=== PATIENT | male | born 1945 | race Caucasian/White ===

== ENCOUNTER 2023-02-10 08:40 | Emergency (ER) | payer OTHER, MEDICARE ==
[2023-02-10 09:17] LABS: BASOPHILS ABSOLUTE AUTO 0.03 10^3/uL (0.00-0.50); BASOPHILS PERCENT AUTO 0.2 % (0-1); EOSINOPHILS ABSOLUTE AUTO 0.23 10^3/uL (0.00-1.50); EOSINOPHILS PERCENT AUTO 1.3 % (0-6); HEMATOCRIT 46.2 % (42.0-52.0); HEMOGLOBIN 14.3 g/dL (14.0-18.0); IMMATURE GRAN ABSOLUTE AUTO 0.12 10^3/uL (0.00-0.49); IMMATURE GRAN PERCENT AUTO 0.7 % (0.0-4.9); LYMPHOCYTES ABSOLUTE AUTO 3.08 10^3/uL (0.60-5.00); LYMPHOCYTES PERCENT AUTO 17.2 % (24-44); MEAN CORPUSCULAR HEMOGLOBIN 28.7 pg (27.0-32.0); MEAN CORPUSCULAR VOLUME 92.8 fL (83.0-97.0); MONOCYTES ABSOLUTE AUTO 1.41 10^3/uL (0.00-1.50); MONOCYTES PERCENT AUTO 7.9 % (0-10); NEUTROPHILS ABSOLUTE AUTO 13.02 x10^3/uL (1.80-8.00); NEUTROPHILS PERCENT AUTO 72.7 % (41-71); PLATELET COUNT,PLT 265 10^3/uL (150-400); RED BLOOD CELL COUNT 4.98 x10^6/uL (4.50-6.00); WHITE BLOOD CELL COUNT,WBC 17.9 10^3/uL (4.0-11.0)
[2023-02-10 09:35] LABS: ALBUMIN 3.4 g/dL (3.4-5.0); BILIRUBIN TOTAL 0.3 mg/dL (0.0-1.0); BLOOD UREA NITROGEN,BUN 15 mg/dL (7-18); CHLORIDE,CL 105 mEq/L (98-106); CREATININE 1.2 mg/dL (0.7-1.3); EST CRCL DRUG DOSING (CG) 49.73 mL/min; MAGNESIUM 2.1 mg/dL (1.8-2.4); POTASSIUM,K 3.1 mEq/L (3.5-5.0); PROTEIN TOTAL,TP 7.4 g/dL (6.4-8.2); SODIUM,NA 145 mEq/L (136-145)
[2023-02-10 09:42] LABS: ALANINE AMINOTRANSFERASE,ALT 58 U/L (12-78); ALKALINE PHOSPHATASE 68 U/L (46-116); ASPARTATE AMNIOTRANSFERASE,AST 54 U/L (15-37); CALCIUM 8.9 mg/dL (8.4-10.1); CARBON DIOXIDE,CO2 27 mmol/L (21-32); GLUCOSE RANDOM 89 mg/dL (75-99)
[2023-02-10 09:45] LABS: ESTIMATED GFR 63 mL/min (>=60)
[2023-02-10 09:46] LABS: ETHANOL BLOOD MEDICAL < 3 mg/dL (0-3)
[2023-02-10] MEDS: Ondansetron 4 MG/2 ML SDV IVPUSH STA (10:03)
[2023-02-10] MEDS: Morphine 4 MG/ML VIAL IVPUSH ONE (10:05)
[2023-02-10] MEDS: Diphtheria,Pertussis(Acell),Tetanus Vaccine 0.5 ML Syringe IM ONE (10:05)
[2023-02-10] MEDS: Lidocaine 1% 5 ML VIAL INJECT ONE (10:10)
[2023-02-10] MEDS: Iopamidol 755 Mg/ML 100 ML Bottle IVPUSH ONE (10:16)
[2023-02-10 10:18] LABS: APPEARANCE,URINE CLEAR (CLEAR); BILIRUBIN,URINE NEGATIVE (NEGATIVE); COLOR,URINE YELLOW (YELLOW); GLUCOSE,URINE 500 mg/dL (NEGATIVE); KETONES,URINE NEGATIVE (NEGATIVE); LEUKOCYTE ESTERASE,URINE NEGATIVE (NEGATIVE); NITRITE,URINE NEGATIVE (NEGATIVE); OCCULT BLOOD,URINE TRACE-INTACT (NEGATIVE); PH,URINE 5.5 (4.5-8.0); PROTEIN,URINE 100 mg/dL (NEGATIVE); UROBILINOGEN,URINE 0.2 EU/dL (0.2-1.0)
[2023-02-10 10:20] LABS: BACTERIA,URINE NOT SEEN /HPF (NOT SEEN); RBC,URINE NOT SEEN /HPF (0-5); WBC,URINE NOT SEEN /HPF (0-5)
[2023-02-10 10:21] LABS: EPITHELIAL CELLS,URINE FEW /HPF (NOT SEEN); MUCUS,URINE FEW /HPF (NOT SEEN)
[2023-02-10] MEDS: Lactated Ringers 1,000 ML IV STA ×2 (10:36→16:48)
[2023-02-10 10:37] LABS: AMPHETAMINES,URINE NEGATIVE (NEGATIVE); BARBITURATES,URINE NEGATIVE (NEGATIVE); BENZODIAZEPINE,URINE NEGATIVE (NEGATIVE); MDMA (ECSTASY), URINE NEGATIVE (NEGATIVE); METHADONE,URINE NEGATIVE (NEGATIVE); METHAMPHETAMINES,URINE NEGATIVE (NEGATIVE); OPIATES,URINE NEGATIVE (NEGATIVE); OXYCODONE,URINE NEGATIVE (NEGATIVE); PHENCYCLIDINE,URINE NEGATIVE (NEGATIVE); TCA,URINE NEGATIVE (NEGATIVE)
[2023-02-10] MEDS: 50% Dextrose in Water 50 ML Syringe IVPUSH ONE (10:38)
[2023-02-10] MEDS: D5 1/2 NS w/ 20 mEq/L KCl 1,000 ML IV SCH (10:42)
[2023-02-10] MEDS: Lidocaine 1% 5 ML VIAL ONE (16:51)
== END 2023-02-10 11:05 ==
LOC: CC.ED 08:40
DX: S72.141A Displaced intertrochanteric fracture of right femur, initial encounter for closed fracture (principal); S32.029A Unspecified fracture of second lumbar vertebra, initial encounter for closed fracture; S32.039A Unspecified fracture of third lumbar vertebra, initial encounter for closed fracture; S01.81XA Laceration without foreign body of other part of head, initial encounter; Z79.899 Other long term (current) drug therapy; Z79.4 Long term (current) use of insulin; Z79.84 Long term (current) use of oral hypoglycemic drugs; V59.50XA Passenger in pick-up truck or van injured in collision with unspecified motor vehicles in traffic accident, initial encounter; Y92.410 Unspecified street and highway as the place of occurrence of the external cause
CPT/HCPCS: 12013; 36415; 70450; 71045; 72125; 72170; 74177; 80053; 80305-QW; 80307; 81001; 82947; 83605; 83735; 84484; 85025; 86850; 86900; 86901; 90471; 90715; 93005; 93010; 96374; 96375; 99284; 99285-25; J2270; J2405; J3480; J3490; J7120; Q9967

== ENCOUNTER 2023-02-21 12:38 | Inpatient (IN) | payer MEDICARE ==
[2023-02-21] MEDS ORDERED: oxyCODONE 5 MG Tab PO PRN ×2 (14:18→14:31)
[2023-02-21] MEDS ORDERED: Glucagon,Human Recombinant 1 MG Vial IM PRN ×2 (14:28→14:41)
[2023-02-21] MEDS ORDERED: 50% Dextrose in Water 50 ML Syringe IVPUSH PRN ×2 (14:28→14:41)
[2023-02-21] MEDS ORDERED: Acetaminophen 325 MG Tab PO PRN (14:47)
[2023-02-21] MEDS ORDERED: Acetaminophen 650 MG Supp RECTAL PRN (14:47)
[2023-02-21] MEDS ORDERED: Magnesium Hydroxide 400 MG/5 ML Susp 30 ML Cup PO PRN (14:48)
[2023-02-21] MEDS ORDERED: Bisacodyl 10 MG Supp RECTAL PRN (14:49)
[2023-02-21] MEDS ORDERED: Loperamide 2 MG Cap PO PRN (14:51)
[2023-02-21] MEDS ORDERED: guaiFENesin 200 MG Tab PO PRN (14:51)
[2023-02-21] MEDS ORDERED: Polyvinyl Alcohol 1.4% Ophth Soln 15 ML Bottle EYEBOTH PRN (14:52)
[2023-02-21] MEDS ORDERED: Lidocaine 5% 700 MG Patch TRDERM SCH (15:00)
[2023-02-21] MEDS: Acetaminophen 325 MG Tab PO SCH ×2 (17:46→19:57)
[2023-02-21] MEDS: Insulin Lispro 100 Units/ML 3 ML Vial SUBCUT SCH (17:46)
[2023-02-21] MEDS: Calcium Carbonate/Vitamin D3 1250 MG-5 MCG Tab PO SCH (17:48)
[2023-02-21] MEDS: Bacitracin Oint 28.35 GM Tube TOP SCH (19:55)
[2023-02-21] MEDS: Sennosides/Docusate Sodium 50-8.6 MG Tab PO SCH (19:56)
[2023-02-21] MEDS: Gabapentin 100 MG Cap PO SCH (19:56)
[2023-02-21] MEDS ORDERED: Polyethylene Glycol 3350 Powder 17 GM Packet PO SCH (20:00)
[2023-02-21] MEDS: Insulin Glarg,Human.Rec.Analog 100 Unit/ML SUBCUT SCH (20:13)
[2023-02-21] MEDS: Nystatin Topical Powder 15 GM Bottle TOP SCH (20:32)
[2023-02-22] MEDS ORDERED: [UNRECOGNIZED DRUG - REMARK] TRDERM SCH (03:00)
[2023-02-22] MEDS: tiZANidine 4 MG Tab PO SCH (07:38)
[2023-02-22] MEDS: Calcium Carbonate/Vitamin D3 1250 MG-5 MCG Tab PO SCH ×2 (07:39→17:04)
[2023-02-22] MEDS: Gabapentin 100 MG Cap PO SCH ×3 (07:39→19:39)
[2023-02-22] MEDS: Sennosides/Docusate Sodium 50-8.6 MG Tab PO SCH ×2 (07:39→19:39)
[2023-02-22] MEDS: Acetaminophen 325 MG Tab PO SCH ×4 (07:39→19:40)
[2023-02-22] MEDS: Cholecalciferol (Vitamin D3) 25 MCG Tab PO SCH (07:39)
[2023-02-22] MEDS: Lidocaine 5% 700 MG Patch TRDERM SCH (07:39)
[2023-02-22] MEDS: Insulin Lispro 100 Units/ML 3 ML Vial SUBCUT SCH ×3 (07:47→17:38)
[2023-02-22] MEDS: Bacitracin Oint 28.35 GM Tube TOP SCH ×2 (07:49→19:38)
[2023-02-22] MEDS: Nystatin Topical Powder 15 GM Bottle TOP SCH ×2 (08:12→19:39)
[2023-02-22] MEDS: Enoxaparin 40 MG/0.4 ML Syringe SUBCUT SCH (11:55)
[2023-02-22] MEDS: Insulin Glarg,Human.Rec.Analog 100 Unit/ML SUBCUT SCH (20:03)
[2023-02-23] MEDS: Calcium Carbonate/Vitamin D3 1250 MG-5 MCG Tab PO SCH ×2 (08:03→17:10)
[2023-02-23] MEDS: Nystatin Topical Powder 15 GM Bottle TOP SCH ×2 (08:03→20:24)
[2023-02-23] MEDS: Insulin Lispro 100 Units/ML 3 ML Vial SUBCUT SCH ×3 (08:04→17:21)
[2023-02-23] MEDS: Gabapentin 100 MG Cap PO SCH ×3 (08:04→19:33)
[2023-02-23] MEDS: Bacitracin Oint 28.35 GM Tube TOP SCH ×2 (08:05→20:23)
[2023-02-23] MEDS: Sennosides/Docusate Sodium 50-8.6 MG Tab PO SCH ×2 (08:05→20:24)
[2023-02-23] MEDS: Lidocaine 5% 700 MG Patch TRDERM SCH (08:05)
[2023-02-23] MEDS: tiZANidine 4 MG Tab PO SCH (08:06)
[2023-02-23] MEDS: Cholecalciferol (Vitamin D3) 25 MCG Tab PO SCH (08:06)
[2023-02-23] MEDS: Acetaminophen 325 MG Tab PO SCH ×4 (08:06→19:32)
[2023-02-23] MEDS: Enoxaparin 40 MG/0.4 ML Syringe SUBCUT SCH (11:57)
[2023-02-23] MEDS: Insulin Glarg,Human.Rec.Analog 100 Unit/ML SUBCUT SCH (20:16)
[2023-02-24] MEDS: tiZANidine 4 MG Tab PO SCH (08:09)
[2023-02-24] MEDS: Calcium Carbonate/Vitamin D3 1250 MG-5 MCG Tab PO SCH ×2 (08:10→16:41)
[2023-02-24] MEDS: Acetaminophen 325 MG Tab PO SCH ×4 (08:10→19:17)
[2023-02-24] MEDS: Gabapentin 100 MG Cap PO SCH ×3 (08:10→19:17)
[2023-02-24] MEDS: Sennosides/Docusate Sodium 50-8.6 MG Tab PO SCH ×2 (08:11→19:17)
[2023-02-24] MEDS: Cholecalciferol (Vitamin D3) 25 MCG Tab PO SCH (08:11)
[2023-02-24] MEDS: Insulin Lispro 100 Units/ML 3 ML Vial SUBCUT SCH ×3 (08:11→17:38)
[2023-02-24] MEDS: Lidocaine 5% 700 MG Patch TRDERM SCH (08:12)
[2023-02-24] MEDS: Nystatin Topical Powder 15 GM Bottle TOP SCH ×2 (08:13→19:17)
[2023-02-24] MEDS: Bacitracin Oint 28.35 GM Tube TOP SCH ×2 (08:13→19:17)
[2023-02-24] MEDS: Enoxaparin 40 MG/0.4 ML Syringe SUBCUT SCH (11:45)
[2023-02-24] MEDS: Insulin Glarg,Human.Rec.Analog 100 Unit/ML SUBCUT SCH (19:37)
[2023-02-25] MEDS: tiZANidine 4 MG Tab PO SCH (07:46)
[2023-02-25] MEDS: Cholecalciferol (Vitamin D3) 25 MCG Tab PO SCH (07:47)
[2023-02-25] MEDS: Gabapentin 100 MG Cap PO SCH ×3 (07:49→19:33)
[2023-02-25] MEDS: Sennosides/Docusate Sodium 50-8.6 MG Tab PO SCH ×2 (07:49→19:33)
[2023-02-25] MEDS: Acetaminophen 325 MG Tab PO SCH ×4 (07:49→19:33)
[2023-02-25] MEDS: Calcium Carbonate/Vitamin D3 1250 MG-5 MCG Tab PO SCH ×2 (07:50→17:57)
[2023-02-25] MEDS: Insulin Lispro 100 Units/ML 3 ML Vial SUBCUT SCH ×3 (07:50→17:11)
[2023-02-25] MEDS: Lidocaine 5% 700 MG Patch TRDERM SCH (07:51)
[2023-02-25] MEDS: Nystatin Topical Powder 15 GM Bottle TOP SCH ×2 (07:52→19:35)
[2023-02-25] MEDS: Bacitracin Oint 28.35 GM Tube TOP SCH ×2 (07:52→19:35)
[2023-02-25] MEDS: Enoxaparin 40 MG/0.4 ML Syringe SUBCUT SCH (11:35)
[2023-02-25] MEDS: Insulin Glarg,Human.Rec.Analog 100 Unit/ML SUBCUT SCH (19:34)
[2023-02-26] MEDS: Calcium Carbonate/Vitamin D3 1250 MG-5 MCG Tab PO SCH ×2 (08:04→17:36)
[2023-02-26] MEDS: tiZANidine 4 MG Tab PO SCH (08:04)
[2023-02-26] MEDS: Gabapentin 100 MG Cap PO SCH ×3 (08:05→19:35)
[2023-02-26] MEDS: Cholecalciferol (Vitamin D3) 25 MCG Tab PO SCH (08:05)
[2023-02-26] MEDS: Sennosides/Docusate Sodium 50-8.6 MG Tab PO SCH ×2 (08:05→19:35)
[2023-02-26] MEDS: Acetaminophen 325 MG Tab PO SCH ×4 (08:05→19:35)
[2023-02-26 08:12] LABS: BASOPHILS ABSOLUTE AUTO 0.02 10^3/uL (0.00-0.50); BASOPHILS PERCENT AUTO 0.2 % (0-1); EOSINOPHILS ABSOLUTE AUTO 0.14 10^3/uL (0.00-1.50); EOSINOPHILS PERCENT AUTO 1.7 % (0-6); HEMATOCRIT 31.5 % (42.0-52.0); HEMOGLOBIN 9.8 g/dL (14.0-18.0); IMMATURE GRAN ABSOLUTE AUTO 0.01 10^3/uL (0.00-0.49); IMMATURE GRAN PERCENT AUTO 0.1 % (0.0-4.9); LYMPHOCYTES ABSOLUTE AUTO 1.34 10^3/uL (0.60-5.00); LYMPHOCYTES PERCENT AUTO 16.5 % (24-44); MEAN CORPUSCULAR HEMOGLOBIN 29.2 pg (27.0-32.0); MEAN CORPUSCULAR HGB CONC 31.1 g/dL (32.0-36.0); MEAN CORPUSCULAR VOLUME 93.8 fL (83.0-97.0); MONOCYTES ABSOLUTE AUTO 0.81 10^3/uL (0.00-1.50); NEUTROPHILS ABSOLUTE AUTO 5.82 x10^3/uL (1.80-8.00); NEUTROPHILS PERCENT AUTO 71.5 % (41-71); PLATELET COUNT,PLT 351 10^3/uL (150-400); RED BLOOD CELL COUNT 3.36 x10^6/uL (4.50-6.00); WHITE BLOOD CELL COUNT,WBC 8.1 10^3/uL (4.0-11.0)
[2023-02-26] MEDS: Insulin Lispro 100 Units/ML 3 ML Vial SUBCUT SCH ×4 (08:16→20:00)
[2023-02-26] MEDS: Lidocaine 5% 700 MG Patch TRDERM SCH (08:26)
[2023-02-26] MEDS: Nystatin Topical Powder 15 GM Bottle TOP SCH ×2 (08:27→19:52)
[2023-02-26] MEDS: Bacitracin Oint 28.35 GM Tube TOP SCH ×2 (08:29→19:53)
[2023-02-26] MEDS ORDERED: 50% Dextrose in Water 50 ML Syringe IVPUSH PRN (09:26)
[2023-02-26] MEDS ORDERED: Glucagon,Human Recombinant 1 MG Vial IM PRN (09:26)
[2023-02-26] MEDS ORDERED: Albuterol/Ipratropium 3.0-0.5 MG/3 ML Neb Soln NEB PRN (10:55)
[2023-02-26] MEDS ORDERED: Ibuprofen 200 MG Tab PO PRN (11:09)
[2023-02-26] MEDS ORDERED: Methocarbamol 500 MG Tab PO PRN (11:11)
[2023-02-26] MEDS: Enoxaparin 40 MG/0.4 ML Syringe SUBCUT SCH (11:29)
[2023-02-26] MEDS: Cefepime 2 GM in Sodium Chloride 0.9% 100 ML IV SCH ×2 (11:30→19:34)
[2023-02-26] MEDS: Albuterol/Ipratropium 3.0-0.5 MG/3 ML Neb Soln NEB SCH ×3 (11:31→19:34)
[2023-02-26] MEDS: Dexamethasone 10 MG/ML SDV IVPUSH SCH (11:49)
[2023-02-26 17:22] LABS: ALBUMIN 2.3 g/dL (3.4-5.0); BILIRUBIN TOTAL 0.6 mg/dL (0.0-1.0); CALCIUM 8.7 mg/dL (8.4-10.1); CREATININE 0.9 mg/dL (0.7-1.3); POTASSIUM,K 4.8 mEq/L (3.5-5.0); PROTEIN TOTAL,TP 7.4 g/dL (6.4-8.2)
[2023-02-26] MEDS ORDERED: Insulin Glarg,Human.Rec.Analog 100 Unit/ML SUBCUT SCH (20:00)
[2023-02-27] MEDS: Cefepime 2 GM in Sodium Chloride 0.9% 100 ML IV SCH ×3 (03:53→19:29)
[2023-02-27] MEDS: Albuterol/Ipratropium 3.0-0.5 MG/3 ML Neb Soln NEB SCH ×4 (08:29→19:31)
[2023-02-27] MEDS: Gabapentin 100 MG Cap PO SCH ×3 (08:35→19:30)
[2023-02-27] MEDS: Calcium Carbonate/Vitamin D3 1250 MG-5 MCG Tab PO SCH ×2 (08:35→17:27)
[2023-02-27] MEDS: Acetaminophen 325 MG Tab PO SCH ×4 (08:35→19:30)
[2023-02-27] MEDS: Cholecalciferol (Vitamin D3) 25 MCG Tab PO SCH (08:35)
[2023-02-27] MEDS: Sennosides/Docusate Sodium 50-8.6 MG Tab PO SCH ×2 (08:36→19:30)
[2023-02-27] MEDS: tiZANidine 4 MG Tab PO SCH (08:36)
[2023-02-27] MEDS: Nystatin Topical Powder 15 GM Bottle TOP SCH ×2 (08:37→19:41)
[2023-02-27] MEDS: Bacitracin Oint 28.35 GM Tube TOP SCH ×2 (08:37→19:41)
[2023-02-27] MEDS: Dexamethasone 10 MG/ML SDV IVPUSH SCH (08:37)
[2023-02-27] MEDS: Lidocaine 5% 700 MG Patch TRDERM SCH (08:41)
[2023-02-27] MEDS: Insulin Lispro 100 Units/ML 3 ML Vial SUBCUT SCH ×3 (08:42→17:32)
[2023-02-27] MEDS: Enoxaparin 40 MG/0.4 ML Syringe SUBCUT SCH (11:53)
[2023-02-27] MEDS: Insulin Glarg,Human.Rec.Analog 100 Unit/ML SUBCUT SCH (19:45)
[2023-02-28] MEDS: Cefepime 2 GM in Sodium Chloride 0.9% 100 ML IV SCH ×3 (03:50→19:29)
[2023-02-28] MEDS: Cholecalciferol (Vitamin D3) 25 MCG Tab PO SCH (07:53)
[2023-02-28] MEDS: Gabapentin 100 MG Cap PO SCH ×3 (07:53→19:29)
[2023-02-28] MEDS: Calcium Carbonate/Vitamin D3 1250 MG-5 MCG Tab PO SCH ×2 (07:53→16:31)
[2023-02-28] MEDS: Albuterol/Ipratropium 3.0-0.5 MG/3 ML Neb Soln NEB SCH ×4 (07:53→19:29)
[2023-02-28] MEDS: Lidocaine 5% 700 MG Patch TRDERM SCH (07:53)
[2023-02-28] MEDS: tiZANidine 4 MG Tab PO SCH (07:54)
[2023-02-28] MEDS: Acetaminophen 325 MG Tab PO SCH ×4 (07:54→19:30)
[2023-02-28] MEDS: Sennosides/Docusate Sodium 50-8.6 MG Tab PO SCH ×2 (07:54→19:30)
[2023-02-28] MEDS: Dexamethasone 10 MG/ML SDV IVPUSH SCH (07:55)
[2023-02-28] MEDS: Insulin Lispro 100 Units/ML 3 ML Vial SUBCUT SCH ×3 (08:08→17:30)
[2023-02-28] MEDS: Bacitracin Oint 28.35 GM Tube TOP SCH ×2 (08:15→19:28)
[2023-02-28] MEDS: Nystatin Topical Powder 15 GM Bottle TOP SCH ×2 (08:15→19:29)
[2023-02-28] MEDS: Enoxaparin 40 MG/0.4 ML Syringe SUBCUT SCH (12:17)
[2023-02-28] MEDS: Insulin Glarg,Human.Rec.Analog 100 Unit/ML SUBCUT SCH (20:07)
[2023-03-01] MEDS: Albuterol/Ipratropium 3.0-0.5 MG/3 ML Neb Soln NEB SCH ×4 (07:42→19:15)
[2023-03-01] MEDS: Cefuroxime 250 MG Tab PO SCH ×2 (07:47→17:34)
[2023-03-01] MEDS: tiZANidine 4 MG Tab PO SCH (07:47)
[2023-03-01] MEDS: Calcium Carbonate/Vitamin D3 1250 MG-5 MCG Tab PO SCH ×2 (07:47→17:34)
[2023-03-01] MEDS: Gabapentin 100 MG Cap PO SCH ×3 (07:47→19:15)
[2023-03-01] MEDS: Sennosides/Docusate Sodium 50-8.6 MG Tab PO SCH ×2 (07:47→19:15)
[2023-03-01] MEDS: Acetaminophen 325 MG Tab PO SCH ×4 (07:47→19:16)
[2023-03-01] MEDS: Cholecalciferol (Vitamin D3) 25 MCG Tab PO SCH (07:48)
[2023-03-01] MEDS: Lidocaine 5% 700 MG Patch TRDERM SCH (07:49)
[2023-03-01] MEDS: Nystatin Topical Powder 15 GM Bottle TOP SCH ×2 (07:54→19:15)
[2023-03-01] MEDS: Bacitracin Oint 28.35 GM Tube TOP SCH ×2 (07:54→19:14)
[2023-03-01] MEDS: Insulin Lispro 100 Units/ML 3 ML Vial SUBCUT SCH ×3 (07:56→17:35)
[2023-03-01] MEDS: Enoxaparin 40 MG/0.4 ML Syringe SUBCUT SCH (11:37)
[2023-03-01] MEDS: Polyethylene Glycol 3350 Powder 17 GM Packet PO PRN (12:03)
[2023-03-01] MEDS: Insulin Glarg,Human.Rec.Analog 100 Unit/ML SUBCUT SCH (19:56)
[2023-03-02] MEDS: Albuterol/Ipratropium 3.0-0.5 MG/3 ML Neb Soln NEB SCH ×4 (07:30→19:34)
[2023-03-02] MEDS: Bacitracin Oint 28.35 GM Tube TOP SCH ×2 (07:31→19:34)
[2023-03-02] MEDS: Nystatin Topical Powder 15 GM Bottle TOP SCH ×2 (07:31→19:35)
[2023-03-02] MEDS: Gabapentin 100 MG Cap PO SCH ×3 (07:32→19:35)
[2023-03-02] MEDS: Cholecalciferol (Vitamin D3) 25 MCG Tab PO SCH (07:32)
[2023-03-02] MEDS: Cefuroxime 250 MG Tab PO SCH ×2 (07:32→18:04)
[2023-03-02] MEDS: Lidocaine 5% 700 MG Patch TRDERM SCH (07:32)
[2023-03-02] MEDS: Calcium Carbonate/Vitamin D3 1250 MG-5 MCG Tab PO SCH ×2 (07:33→18:04)
[2023-03-02] MEDS: Sennosides/Docusate Sodium 50-8.6 MG Tab PO SCH ×2 (07:33→19:35)
[2023-03-02] MEDS: tiZANidine 4 MG Tab PO SCH (07:33)
[2023-03-02] MEDS: Acetaminophen 325 MG Tab PO SCH ×4 (07:33→19:33)
[2023-03-02] MEDS: Insulin Lispro 100 Units/ML 3 ML Vial SUBCUT SCH ×3 (08:07→18:17)
[2023-03-02] MEDS: Enoxaparin 40 MG/0.4 ML Syringe SUBCUT SCH (11:36)
[2023-03-02] MEDS ORDERED: Glucagon,Human Recombinant 1 MG Vial IM PRN (16:24)
[2023-03-02] MEDS ORDERED: 50% Dextrose in Water 50 ML Syringe IVPUSH PRN (16:24)
[2023-03-02] MEDS: Polyethylene Glycol 3350 Powder 17 GM Packet PO PRN (19:41)
[2023-03-02] MEDS: Insulin Glarg,Human.Rec.Analog 100 Unit/ML SUBCUT SCH (19:49)
[2023-03-03] MEDS: Cefuroxime 250 MG Tab PO SCH ×2 (07:55→17:30)
[2023-03-03] MEDS: Bacitracin Oint 28.35 GM Tube TOP SCH ×2 (07:55→19:58)
[2023-03-03] MEDS: Gabapentin 100 MG Cap PO SCH ×3 (07:55→19:30)
[2023-03-03] MEDS: Albuterol/Ipratropium 3.0-0.5 MG/3 ML Neb Soln NEB SCH ×4 (07:55→20:00)
[2023-03-03] MEDS: Acetaminophen 325 MG Tab PO SCH ×4 (07:56→19:30)
[2023-03-03] MEDS: Lidocaine 5% 700 MG Patch TRDERM SCH (07:56)
[2023-03-03] MEDS: tiZANidine 4 MG Tab PO SCH (07:57)
[2023-03-03] MEDS: Calcium Carbonate/Vitamin D3 1250 MG-5 MCG Tab PO SCH ×2 (07:57→17:30)
[2023-03-03] MEDS: Nystatin Topical Powder 15 GM Bottle TOP SCH ×2 (07:58→19:58)
[2023-03-03] MEDS: Cholecalciferol (Vitamin D3) 25 MCG Tab PO SCH (07:58)
[2023-03-03] MEDS: Sennosides/Docusate Sodium 50-8.6 MG Tab PO SCH ×2 (07:58→19:30)
[2023-03-03] MEDS: Insulin Glarg,Human.Rec.Analog 100 Unit/ML SUBCUT SCH ×2 (07:59→19:55)
[2023-03-03] MEDS: Insulin Lispro 100 Units/ML 3 ML Vial SUBCUT SCH ×3 (08:01→17:31)
[2023-03-03] MEDS: Enoxaparin 40 MG/0.4 ML Syringe SUBCUT SCH (11:50)
[2023-03-03] MEDS ORDERED: Nystatin Topical Powder 15 GM Bottle TOP PRN (20:08)
[2023-03-04] MEDS: Albuterol/Ipratropium 3.0-0.5 MG/3 ML Neb Soln NEB SCH ×2 (07:48→11:41)
[2023-03-04] MEDS: Polyethylene Glycol 3350 Powder 17 GM Packet PO PRN (07:48)
[2023-03-04] MEDS: Lidocaine 5% 700 MG Patch TRDERM SCH (07:48)
[2023-03-04] MEDS: Cefuroxime 250 MG Tab PO SCH ×2 (07:49→17:22)
[2023-03-04] MEDS: Sennosides/Docusate Sodium 50-8.6 MG Tab PO SCH ×2 (07:49→19:38)
[2023-03-04] MEDS: Calcium Carbonate/Vitamin D3 1250 MG-5 MCG Tab PO SCH ×2 (07:49→17:22)
[2023-03-04] MEDS: Acetaminophen 325 MG Tab PO SCH ×4 (07:50→19:39)
[2023-03-04] MEDS: Gabapentin 100 MG Cap PO SCH ×3 (07:50→19:38)
[2023-03-04] MEDS: Cholecalciferol (Vitamin D3) 25 MCG Tab PO SCH (07:50)
[2023-03-04] MEDS: tiZANidine 4 MG Tab PO SCH (07:51)
[2023-03-04] MEDS: Insulin Glarg,Human.Rec.Analog 100 Unit/ML SUBCUT SCH ×2 (07:53→19:49)
[2023-03-04] MEDS: Insulin Lispro 100 Units/ML 3 ML Vial SUBCUT SCH ×3 (07:55→17:23)
[2023-03-04] MEDS: Enoxaparin 40 MG/0.4 ML Syringe SUBCUT SCH (11:39)
[2023-03-05] MEDS: Lidocaine 5% 700 MG Patch TRDERM SCH (07:39)
[2023-03-05] MEDS: Cholecalciferol (Vitamin D3) 25 MCG Tab PO SCH (07:45)
[2023-03-05] MEDS: Sennosides/Docusate Sodium 50-8.6 MG Tab PO SCH ×2 (07:47→19:48)
[2023-03-05] MEDS: Gabapentin 100 MG Cap PO SCH ×3 (07:47→19:48)
[2023-03-05] MEDS: tiZANidine 4 MG Tab PO SCH (07:47)
[2023-03-05] MEDS: Acetaminophen 325 MG Tab PO SCH ×4 (07:49→19:48)
[2023-03-05] MEDS: Insulin Glarg,Human.Rec.Analog 100 Unit/ML SUBCUT SCH (07:51)
[2023-03-05] MEDS: Insulin Lispro 100 Units/ML 3 ML Vial SUBCUT SCH ×2 (07:52→11:45)
[2023-03-05] MEDS: Calcium Carbonate/Vitamin D3 1250 MG-5 MCG Tab PO SCH ×2 (07:57→17:31)
[2023-03-05] MEDS: Cefuroxime 250 MG Tab PO SCH (08:00)
[2023-03-05 11:28] LABS: HEMOGLOBIN A1C 8.4 % (4.8-5.6)
[2023-03-05] MEDS: Enoxaparin 40 MG/0.4 ML Syringe SUBCUT SCH (11:34)
[2023-03-05 11:40] LABS: CREATININE 0.9 mg/dL (0.7-1.3); POTASSIUM,K 4.6 mEq/L (3.5-5.0)
[2023-03-05] MEDS ORDERED: Glucagon,Human Recombinant 1 MG Vial IM PRN ×2 (13:08)
[2023-03-05] MEDS ORDERED: 50% Dextrose in Water 50 ML Syringe IVPUSH PRN (13:08)
[2023-03-05] MEDS ORDERED: Insulin Glarg,Human.Rec.Analog 100 Unit/ML SUBCUT SCH (20:00)
[2023-03-06] MEDS ORDERED: Insulin Glarg,Human.Rec.Analog 100 Unit/ML SUBCUT SCH (08:00)
[2023-03-06] MEDS: tiZANidine 4 MG Tab PO SCH (08:12)
[2023-03-06] MEDS: Sennosides/Docusate Sodium 50-8.6 MG Tab PO SCH (08:14)
[2023-03-06] MEDS: Cholecalciferol (Vitamin D3) 25 MCG Tab PO SCH (08:14)
[2023-03-06] MEDS: Gabapentin 100 MG Cap PO SCH (08:14)
[2023-03-06] MEDS: Acetaminophen 325 MG Tab PO SCH (08:15)
[2023-03-06] MEDS: Lidocaine 5% 700 MG Patch TRDERM SCH (08:16)
[2023-03-06] MEDS: Calcium Carbonate/Vitamin D3 1250 MG-5 MCG Tab PO SCH (08:16)
== END 2023-03-06 10:35 | disposition home or self-care (01) | DRG 559 ==
LOC: CC.MS 13:31 → UNDOADMIN 13:31 → CC.MS 14:03
PROVIDERS: ADMIT Nurse Practitioner Family; ATTEND Nurse Practitioner Family
DX: S72.91XD Unspecified fracture of right femur, subsequent encounter for closed fracture with routine healing (principal); J18.9 Pneumonia, unspecified organism; S22.43XD Multiple fractures of ribs, bilateral, subsequent encounter for fracture with routine healing; E66.01 Morbid (severe) obesity due to excess calories; I10 Essential (primary) hypertension; E11.649 Type 2 diabetes mellitus with hypoglycemia without coma; E78.00 Pure hypercholesterolemia, unspecified; S32.038D Other fracture of third lumbar vertebra, subsequent encounter for fracture with routine healing; Z79.4 Long term (current) use of insulin; Z79.899 Other long term (current) drug therapy; Z87.81 Personal history of (healed) traumatic fracture; Z68.37 Body mass index [BMI] 37.0-37.9, adult
CPT/HCPCS: 36415; 71046; 80048; 80053; 82947; 83036; 85025; 94640; 97110-GP; 97116-GP; 97162-GP; 97530-GP; 99306; 99307; 99315; A9270-GY; J0692; J1100; J1650; J1815-GY; J3490; J7620-GY